=== PATIENT | male | born 1965 | race Caucasian/White ===

== ENCOUNTER 2017-02-20 01:59 | Observation (INO) | payer SELFPAY ==
[2017-02-20 02:05] VITALS: BP 140/92; PULSE 89; RESP 16; TEMP 97.2; O2SAT 100
--- NOTE | 2017-02-20 02:45 | ED PDOC ---
HPI: Psych/Substance Abuse Time Seen by Provider: 02/20/17 02:09 Chief Complaint (Nursing): Alcohol Ingestion Chief Complaint (Provider): unsteady gait History Per: Patient History/Exam Limitations: no limitations Onset/Duration Of Symptoms: Mins Current Symptoms Are (Timing): Still Present Additional Complaint(s): 51yo male presents to the ED via EMS for evaluation of unsteady gait. Patient admits to drinking today. No trauma or any other medical complaints. Past Medical History Reviewed: Historical Data, Nursing Documentation, Vital Signs Vital Signs: Last Vital Signs Temp 97.2 F L 02/20/17 02:03 Pulse 89 02/20/17 02:03 Resp 16 02/20/17 02:03 BP 140/92 H 02/20/17 02:03 Pulse Ox 100 02/20/17 02:03 - Medical History PMH: No Chronic Diseases - Surgical History Surgical History: No Surg Hx - Family History Family History: States: No Known Family Hx - Allergies Allergies/Adverse Reactions: Allergies Allergy/AdvReac Type Severity Reaction Status Date / Time No Known Allergies Allergy Verified 02/20/17 02:02 Review of Systems ROS Statement: Except As Marked, All Systems Reviewed And Found Negative Constitutional: Positive for: Other (no trauma, unsteady gait reported by EMS secondary to intoxication ) Physical Exam - Reviewed Nursing Documentation Reviewed: Yes Vital Signs Reviewed: Yes - Physical Exam Appears: Positive for: Well (appears intoxicated ), No Acute Distress Head Exam: Positive for: ATRAUMATIC (no signs of trauma ), NORMAL INSPECTION, NORMOCEPHALIC Skin: Positive for: Normal Color, Warm, Dry Eye Exam: Positive for: Normal appearance, EOMI, PERRL ENT: Positive for: Normal ENT Inspection Neck: Positive for: Normal, Painless ROM, Supple Cardiovascular/Chest: Positive for: Regular Rate, Rhythm. Negative for: Murmur , Tachycardia Respiratory: Positive for: Normal Breath Sounds. Negative for: Wheezing, Respiratory Distress Gastrointestinal/Abdominal: Positive for: Normal Exam, Bowel Sounds, Soft. Negative for: Tenderness Back: Positive for: Normal Inspection Extremity: Positive for: Normal ROM. Negative for: Deformity, Swelling Neurologic/Psych: Positive for: Alert, Oriented - ECG O2 Sat by Pulse Oximetry: 100 Pulse Ox Interpretation: Normal (RA) Medical Decision Making Medical Decision Makin: Impression: alcohol intoxication Plan: alc serum, accucheck, ED obs, reassess 0410: Patient AAOx3 ambulating with steady gait and clear speech and stable for d/c. 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 Scribe Attestation: Documented by Haim Scott acting as a scribe for Rodolfo Miramontes MD. Provider Scribe Attestation: All medical record entries made by the Scribe were at my direction and personally dictated by me. I have reviewed the chart and agree that the record accurately reflects my personal performance of the history, physical exam, medical decision making, and the department course for this patient. I have also personally directed, reviewed, and agree with the discharge instructions and disposition. ED OBSERVATION Date of observation admission: 02/20/17 Time of observation admission: 02:09 - Observation admission statement Patient is being placed in observation because:: alcohol intoxication - Goals of Observation Goals of observation are:: pending sobriety Disposition - Clinical Impression Clinical Impression: Alcohol abuse - Patient ED Disposition Is Patient to be Admitted: No - Disposition Disposition: Routine/Home Disposition Time: 04:10 Condition: IMPROVED
== END 2017-02-20 05:14 | disposition home or self-care (01) ==
LOC: H.ER 01:59 → H.EROBSV 02:09
PROVIDERS: ADMIT Emergency Medicine; ATTEND Emergency Medicine
DX: F10.129 Alcohol abuse with intoxication, unspecified (principal)
CPT/HCPCS: 82948; 99282; G0378; G0480